=== PATIENT | female | born 1980 | race Asian ===

== ENCOUNTER 2024-01-22 09:47 | Outpatient (CLI) | payer BC, SELFPAY ==
--- NOTE | 2024-01-22 09:45 | MM_ITS ---
Patient: FRIDA FOLEY Facility:?[facility] Patient ID:?[id number] Site Patient ID:?[id number]. Site :?[id number] Study:?XRay-Breast Bilateral 3D W/CAD-01/22/2024 10:07:32 AM Ordering Physician:Blanca Ledesma Final Report: BILATERAL SCREENING MAMMOGRAM WITH COMPUTER-AIDED DETECTION AND TOMOSYNTHESIS TECHNIQUE: CC and MLO views were obtained. These mammographic images have been obtained using full-field digital technique. These mammographic images were interpreted with the benefit of computer-aided detection. Breast Tomosynthesis was used in this interpretation. COMPARISON FILM: 01/09/22, 08/27/20. FINDINGS: The breasts are heterogeneously dense, which may obscure small masses. IMPRESSION: There is no radiographic evidence for malignancy. ASSESSMENT: BI-RADS Category 2: Benign RECOMMENDATION: Routine screening mammogram in 1 year. A lay language report of this examination will be provided to the patient. Clyde Mak M.D. Diagnostic Radiologist [email or web address] DSM/sp R& Transcribed: 3:21 p.m. SP/Dictated by: Clyde Mak MD @ 01/25/2024 11:05:00 AM Signed by:?Clyde Mak MD @01/25/2024 3:59:23 PM (Electronic Signature)
== END 2024-01-22 09:48 | disposition home or self-care (01) ==
LOC: MAMMO 09:48
PROVIDERS: PCP Family Medicine; Visit Provider Obstetrics & Gynecology
DX: Z12.31 Encounter for screening mammogram for malignant neoplasm of breast (principal); R92.2 Inconclusive mammogram
CPT/HCPCS: 77063; 77067

== ENCOUNTER 2025-05-05 14:51 | Outpatient (CLI) | payer BC, SELFPAY ==
--- NOTE | 2025-05-05 15:20 | CRLHL7_ITS ---
For Patients: As a result of the Century Cures Act, medical imaging exams and procedure reports are released immediately into your electronic medical record. You may view this report before your referring provider. If you have questions, please contact your health care provider. INDICATION: BILATERAL SCREENING MAMMOGRAM, ASYMPTOMATIC 44 Y/O FEMALE COMPARISON: 01/22/2024, 01/09/2022, 08/27/2020 TECHNIQUE: Digital mammogram in CC and MLO projections including computer-aided detection (CAD) and tomosynthesis. BREAST COMPOSITION: The breasts are heterogeneously dense, which may obscure small masses. FINDINGS: No suspicious findings. ASSESSMENT: BI-RADS 2 Benign RECOMMENDATION: Annual screening mammogram. A lay language report of this examination will be provided to the patient. Dictated by: Clyde Mak MD @ 05/08/2025 09:04:22 (Electronically Signed)
== END 2025-05-05 14:52 | disposition home or self-care (01) ==
LOC: MAMMO 14:51
PROVIDERS: PCP Family Medicine; Visit Provider Obstetrics & Gynecology
DX: Z12.31 Encounter for screening mammogram for malignant neoplasm of breast (principal); R92.333 Mammographic heterogeneous density, bilateral breasts
CPT/HCPCS: 77063; 77067